=== PATIENT | male | born 1970 | race Caucasian/White ===

== ENCOUNTER 2016-11-15 07:53 | Emergency (ER) | payer BC ==
[~2016-11-15] VITALS: Ht 170.1 cm; Wt 72.6 kg
[~2016-11-15 07:53] MED LIST: ASPIRIN81 M1 PO; AUGMENTIN 875875 MG PO; CIMZIA200 MG/ML SC; CYCLOBENZAPRINE10 MG PO; DICYCLOMINE HCL20 MG PO; FAMILY PHARMAC0.4 MG PO; FLAGYL250 MG PO; HYDROCODONE BIT1 T11 PO; LOTRISONE 0.05%1 CRE TP; MIRALAX POWDER255 GM PO; MOTRIN800 MG PO; MULTIPLE VITAMI1 CAP PO; NASONEX0.05 MG/AC NS; NORCO 5-325 TA1 EACH PO; PENTASA500 MG PO; PHENERGAN W/ DE30 ML PO; PREDNICOT10 MG PO; PREDNISONE20 MG PO; PREDNISONE25 MG PO; PRILOSEC40 MG PO; PROAIR HFA0.09 MG/AC INH; ZOFRAN ODT4 MG PO; ZOFRAN ODT4 MG SL
[2016-11-15 08:33] LABS: BASO % 0.8 % (0.0-1.0); EOS # 0.1 10*3/uL (0.0-0.4); EOS % 1.9 % (1.0-4.0); HEMATOCRIT 44.4 % (42.0-52.0); HEMOGLOBIN 14.9 g/dl (14.0-18.0); LYMPH # 1.5 10*3/uL (1.3-4.4); LYMPH % 29.9 % (27.0-41.0); MEAN CELL VOLUME 95.3 fl (80.0-94.0); MEAN CORPUSCULAR HGB CONC 33.6 g/dl (33.0-37.0); MEAN PLATELET VOLUME 8.9 fl (9.6-12.3); MONO # 0.4 10*3/uL (0.1-1.0); MONO % 8.3 % (3.0-9.0); NEUT % 58.9 % (47.0-73.0); PLATELET COUNT AUTOMATED 289 10*3/uL (130-400); RED BLOOD COUNT 4.66 10*6/uL (4.50-5.90); RED CELL DISTRI WIDTH 11.8 % (0-14.5); WHITE BLOOD COUNT 5.2 10*3/uL (4.8-10.8)
[2016-11-15 08:51] LABS: ALBUMIN 3.9 gm/dl (3.1-4.5); ALKALINE PHOSPHATASE 71 U/L (45-117); BILIRUBIN, TOTAL 0.3 mg/dl (0.2-1.0); BUN 9 mg/dl (7-24); CARBON DIOXIDE 29 mmol/L (21-32); CHLORIDE 106 mmol/L (98-107); EST GLOM FILT AFRICAN AMERICAN > 60 ml/min; GLUCOSE 110 mg/dL (65-99); MAGNESIUM 2.2 mg/dL (1.5-2.1); POTASSIUM 3.8 mmol/L (3.5-5.1); SGOT/AST 12 IU/L (3-35); SGPT/ALT 22 U/L (12-78); SODIUM 144 mmol/L (136-145); TOTAL PROTEIN 7.4 gm/dL (6.4-8.2); TROPONIN I < 0.015 ng/ml (<0.5)
[2016-11-15] MEDS ORDERED: MECLIZINE HCL25 M2 PO (11:07)
[2017-01-10] MEDS ORDERED: PERCOCET 325 MG1 TA2 PO (01:10)
== END 2016-11-15 11:09 | disposition home or self-care (01) ==
LOC: ED 07:53
PROVIDERS: Emergency Medicine
DX: R42 Dizziness and giddiness (principal); R51 Headache; R11.0 Nausea; F17.200 Nicotine dependence, unspecified, uncomplicated; Z88.8 Allergy status to other drugs, medicaments and biological substances; Z79.82 Long term (current) use of aspirin; Z79.899 Other long term (current) drug therapy

== ENCOUNTER 2017-01-20 00:15 | Inpatient (IN) | payer BC ==
[2017-01-20] VITALS (8 sets, daily range): BP systolic 104–128; BP diastolic 59–78
[~2017-01-20] VITALS: Ht 170.2 cm; Wt 70.3 kg
--- NOTE | ~2017-01-20 | CON ---
[place], [place] REPORT OF CONSULTATION NAME: [facility]A MYRICK [facility] [id number] UNIT #: [id number] ROOM: 407 DOCTOR: DA CELESTE MD BIRTHDATE: [birth year] DOS: 01/20/2017 CARDIOLOGY CONSULTATION REASON FOR CONSULTATION: Chest pain. CLINICAL HISTORY: The patient is a 46-year-old gentleman with history of Crohn's disease and tobacco smoking, who came to the Emergency Room with left-sided chest pain. He described this pain as aching sensation in the midsternal area at rest, mild and it radiates to the both sides of the chest wall. No associated nausea, shortness of breath or diaphoresis. In the Emergency Room, he received aspirin that helps his pain partially, but he denies any palpitations, shortness of breath, or dizziness. No edema or orthopnea. No PND. No fever or chills. No nausea, vomiting, or diarrhea. No hematemesis. No hematuria. No cough. No tingling, numbness or weakness. He had a stress test probably 4 years ago and he does smoke and try cut back his cigarettes. REVIEW OF SYSTEMS: Review of the 8 systems negative except as mentioned above. PAST MEDICAL HISTORY: 1. Crohn's disease. 2. History of partial resection of the colon and terminal ileum. 3. GERD. PAST SURGICAL HISTORY: History of partial colon resection and terminal ileum resection about 20 years ago. SOCIAL HISTORY: The patient does smoke half a pack to 1 pack a day, but does not use alcohol or illicit drug abuse. FAMILY HISTORY: Father has ____ diverticulosis. Mother has colitis and protein S deficiency. ALLERGIES: THE PATIENT IS ALLERGIC TO PHENOBARBITAL. HOME MEDICATIONS: Reviewed. PHYSICAL EXAMINATION: VITAL SIGNS: Blood pressure 104/74, pulse 63, respiratory rate is 14. GENERAL: Alert, comfortable, in no acute distress. HEENT: Pupils are round and equal. No jaundice. Tongue was moist and pharynx was clear. NECK: Supple. No distended neck veins. No carotid bruit. Thyroid is not palpable. CHEST: Chest wall is symmetrical, nontender. LUNGS: Clear to auscultation bilaterally. HEART: Regular rhythm, no S3, no palpable thrills. ABDOMEN: Benign, nontender. Bowel sounds normal. EXTREMITIES: Showed no edema. Distal pulses are palpable. SKIN: Warm and dry. No cyanosis, no clubbing. [place], [place] REPORT OF CONSULTATION NAME: NEELA MYRICK UNIT #: [id number] ROOM: 407 DOCTOR: BOOKER LAM,DA BIRTHDATE: [birth year] NEUROLOGIC: The patient was alert and oriented with no gross focal neurologic deficit. RECTAL: Deferred. GENITOURINARY: Deferred. REVIEW OF THE DIAGNOSTIC TESTS: EKG showed sinus rhythm. CBC, chemistry and cardiac enzymes were reviewed, which are unremarkable. IMPRESSION: 1. Chest pain, atypical. 2. Tobacco smoking. 3. History of Crohn's disease. RECOMMENDATIONS: He was scheduled for a stress test today, now I changed to Lexiscan since he just received morphine this morning. He denies any further chest pains. EKG and cardiac enzymes are unremarkable. If the stress test is unremarkable, he can be discharged to home from the cardiac standpoint. The patient is counseled to quit smoking. DA CELESTE MD CM:CONSTR:REPORT OF CONSULTATION 1121 01/20/172129 interface
--- NOTE | ~2017-01-20 | ST ---
[place], [place] EXERCISE STRESS TEST REPORT NAME: [id number] UNIT #: [id number] ROOM: 407 DOCTOR: BOOKER LAM,DA BIRTHDATE: [birth year] DOS: 01/20/2017 LEXISCAN STRESS TEST REASON FOR TEST: Chest pain. REFERRING PHYSICIAN: Dr. Rivas. PHYSICAL EXAMINATION NECK: Supple. LUNGS: Clear to auscultation. HEART: Regular rhythm. PROTOCOL: Lexiscan protocol. Maximum heart rate 115 and peak blood pressure 104/74. SYMPTOMS: The patient is chest pain free. EKG showed no ischemia, no arrhythmias. CONCLUSION: Clinically, the patient is chest pain free and there is no ischemia on the EKG. The patient received a total of 0.4 mg Lexiscan. DA CELESTE MD CM:STRESS:EXERCISE STRESS TEST REPORT 1135 [id number] DA CELESTE MD
[~2017-01-20 00:15] MED LIST changes: +MECLIZINE HCL25 M2 PO; +PERCOCET 325 MG1 TA2 PO
[2017-01-20 00:41] LABS: BASO # 0.1 10*3/uL (0.0-0.1); BASO % 0.9 % (0.0-1.0); EOS # 0.3 10*3/uL (0.0-0.4); EOS % 4.1 % (1.0-4.0); HEMATOCRIT 43.1 % (42.0-52.0); HEMOGLOBIN 14.7 g/dl (14.0-18.0); LYMPH # 2.3 10*3/uL (1.3-4.4); LYMPH % 30.9 % (27.0-41.0); MEAN CELL VOLUME 93.3 fl (80.0-94.0); MEAN CORPUSCULAR HGB 31.8 pg (27.0-31.0); MEAN CORPUSCULAR HGB CONC 34.1 g/dl (33.0-37.0); MEAN PLATELET VOLUME 8.9 fl (9.6-12.3); MONO # 0.8 10*3/uL (0.1-1.0); MONO % 10.6 % (3.0-9.0); NEUT % 53.4 % (47.0-73.0); PLATELET COUNT AUTOMATED 299 10*3/uL (130-400); RED BLOOD COUNT 4.62 10*6/uL (4.50-5.90); RED CELL DISTRI WIDTH 12.2 % (0-14.5); WHITE BLOOD COUNT 7.5 10*3/uL (4.8-10.8)
[2017-01-20 00:59] LABS: BUN 8 mg/dl (7-24); CARBON DIOXIDE 27 mmol/L (21-32); CHLORIDE 103 mmol/L (98-107); EST GLOM FILT AFRICAN AMERICAN > 60 ml/min; GLUCOSE 122 mg/dL (65-99); POTASSIUM 3.5 mmol/L (3.5-5.1); SODIUM 142 mmol/L (136-145)
[2017-01-20 01:02] LABS: TROPONIN I < 0.015 ng/ml (<0.045)
[2017-01-20] MEDS ORDERED: PERCOCET 325 MG1 TA2 PO (01:16)
[2017-01-20] MEDS ORDERED: BENTYL10 MG PO ×2 (01:52→06:53)
== END 2017-01-20 19:19 | disposition home or self-care (01) | DRG 313 ==
LOC: ED 00:15 → EDHOLD 01:44 → 4E 02:09
PROVIDERS: Emergency Medicine Emergency Medical Services
PROC: 4A02XM4 Measurement of Cardiac Total Activity, External Approach (ICD-10-PCS; principal; 2017-01-20)
DX: R07.89 Other chest pain (principal); K50.90 Crohn's disease, unspecified, without complications; K21.9 Gastro-esophageal reflux disease without esophagitis; F17.210 Nicotine dependence, cigarettes, uncomplicated; F41.9 Anxiety disorder, unspecified; R73.9 Hyperglycemia, unspecified; K44.9 Diaphragmatic hernia without obstruction or gangrene; Z71.6 Tobacco abuse counseling; Z83.79 Family history of other diseases of the digestive system; Z88.8 Allergy status to other drugs, medicaments and biological substances; Z79.82 Long term (current) use of aspirin; Z79.1 Long term (current) use of non-steroidal anti-inflammatories (NSAID); Z79.899 Other long term (current) drug therapy

== ENCOUNTER → 2017-01-24 | Outpatient (CLI) | payer BC ==
[~2017-01-24] MED LIST changes: +BENTYL10 MG PO
== END | disposition home or self-care (01) ==
LOC: LAB 13:11
PROVIDERS: Internal Medicine Gastroenterology
DX: K50.918 Crohn's disease, unspecified, with other complication (principal)

== ENCOUNTER 2017-02-02 19:49 | Emergency (ER) | payer BC ==
[~2017-02-02] VITALS: Ht 170.1 cm; Wt 66.2 kg
[2017-02-02 20:35] LABS: BASO # 0.1 10*3/uL (0.0-0.1); BASO % 1.1 % (0.0-1.0); EOS # 0.3 10*3/uL (0.0-0.4); EOS % 3.5 % (1.0-4.0); HEMATOCRIT 45.3 % (42.0-52.0); HEMOGLOBIN 15.3 g/dl (14.0-18.0); LYMPH # 2.9 10*3/uL (1.3-4.4); LYMPH % 39.1 % (27.0-41.0); MEAN CELL VOLUME 95.8 fl (80.0-94.0); MEAN CORPUSCULAR HGB 32.3 pg (27.0-31.0); MEAN CORPUSCULAR HGB CONC 33.8 g/dl (33.0-37.0); MEAN PLATELET VOLUME 8.7 fl (9.6-12.3); MONO # 0.8 10*3/uL (0.1-1.0); MONO % 10.9 % (3.0-9.0); NEUT # 3.4 10*3/uL (2.3-7.9); NEUT % 45.3 % (47.0-73.0); PLATELET COUNT AUTOMATED 253 10*3/uL (130-400); RED BLOOD COUNT 4.73 10*6/uL (4.50-5.90); RED CELL DISTRI WIDTH 12.3 % (0-14.5); WHITE BLOOD COUNT 7.4 10*3/uL (4.8-10.8)
[2017-02-02 20:38] LABS: BILIRUBIN NEGATIVE (NEGATIVE); BLOOD NEGATIVE (NEGATIVE); CLARITY CLEAR (CLEAR); COLOR YELLOW (YELLOW); GLUCOSE NEGATIVE (NEGATIVE); KETONE NEGATIVE (NEGATIVE); LEUKO ESTERASE NEGATIVE (NEGATIVE); NITRITE NEGATIVE (NEGATIVE); PH 6.5 (5.0-9.0); PROTEIN NEGATIVE (NEGATIVE); SPECIFIC GRAVITY <= 1.005 (1.005-1.030); UROBILINOGEN 0.2 E.U./dl (0.2-1.0)
[2017-02-02 20:45] LABS: URINE REFLEX COMMENT NO (NO); WBC 0-2 wbc/hpf (0-5)
[2017-02-02 20:50] LABS: ALBUMIN 4.2 gm/dl (3.1-4.5); ALKALINE PHOSPHATASE 69 U/L (45-117); BILIRUBIN, TOTAL 0.3 mg/dl (0.2-1.0); BUN 9 mg/dl (7-24); CARBON DIOXIDE 30 mmol/L (21-32); CHLORIDE 105 mmol/L (98-107); EST GLOM FILT AFRICAN AMERICAN > 60 ml/min; GLUCOSE 84 mg/dL (65-99); POTASSIUM 4.3 mmol/L (3.5-5.1); SGOT/AST 13 IU/L (3-35); SGPT/ALT 25 U/L (12-78); SODIUM 141 mmol/L (136-145); TOTAL PROTEIN 7.8 gm/dL (6.4-8.2)
== END 2017-02-02 21:57 | disposition home or self-care (01) ==
LOC: ED 19:49
PROVIDERS: Physician Assistant
DX: G89.29 Other chronic pain (principal); R10.11 Right upper quadrant pain; F17.200 Nicotine dependence, unspecified, uncomplicated; Z98.890 Other specified postprocedural states; Z79.82 Long term (current) use of aspirin; Z88.8 Allergy status to other drugs, medicaments and biological substances

== ENCOUNTER 2017-06-11 16:04 | Inpatient (IN) | payer BC ==
[~2017-06-11] VITALS: Ht 170.1 cm; Wt 65.4 kg
--- NOTE | ~2017-06-11 | CON ---
[place], [place] REPORT OF CONSULTATION NAME: [facility]ICK [facility] [id number] UNIT #: [id number] ROOM: 526 DOCTOR: DA CELESTE MD BIRTHDATE: [birth year] DOS: 06/13/2017 REASON FOR CONSULTATION: Syncope and bradycardia. CLINICAL HISTORY: The patient is a 46-year-old gentleman with history of Crohn's disease, history of recurrent syncopal attacks in the past, was brought to the Emergency Room by his parent because of "unresponsiveness." Apparently, the patient was at work and he was picked up by his family members and he was found to be unresponsive and they picked him up per his family and he was brought to the Emergency Room. He was found to have "some weak pulse" per family. Glucose was 116. He was put on a nonrebreather facemask and given some Narcan and Zofran as well as IV fluids and during that time, the patient became more alert and responded to the nursing staff. Apparently, he has history of "few episodes of passing out spells" about 2 years ago. He fell and hit his head. He was noted to have some "migraine headaches", some nausea. Apparently, there was no chest pains or palpitations. No fever and chills. He had history of Crohn's disease with history of colon surgery a few years ago. REVIEW OF SYSTEMS: Review of the 8 systems negative except as mentioned above. The only review of systems is positive for headache and nausea and some abdominal pain. PAST MEDICAL HISTORY: 1. History of Crohn's disease. 2. Tobacco use. 3. History of "passing out spells." 4. Acid reflux. 5. Hiatal hernia. PAST SURGICAL HISTORY: History of colon surgery. SOCIAL HISTORY: The patient does not use any illicit drugs, does smoke cigarettes, does not use alcohol. FAMILY HISTORY: Father is healthy, has diverticulosis; mother has some ischemic colitis and a protein S deficiency. ALLERGIES: THE PATIENT IS ALLERGIC TO PHENOBARBITAL. OCCUPATION: The patient is a commercial installer. HOME MEDICATIONS: Aspirin, Prilosec and Cimzia. PHYSICAL EXAMINATION: VITAL SIGNS: Blood pressure 90/52, pulse 56, respiratory rate 16. GENERAL: Alert, comfortable, in no acute distress. HEENT: Pupils are round and equal. No jaundice. Tongue was moist and pharynx was clear. NECK: Supple, no distended neck veins, no carotid bruit. CHEST: Symmetrical, nontender. [place], [place] REPORT OF CONSULTATION NAME: NEELA MYRICK [facility] UNIT #: [id number] ROOM: 526 DOCTOR: DA CELESTE MD BIRTHDATE: [birth year] LUNGS: Clear to auscultation bilaterally. HEART: Regular rhythm, no S3, no palpable thrills. ABDOMEN: Benign, nontender. Bowel sounds normal. EXTREMITIES: Showed no edema. Distal pulses are palpable. SKIN: Warm and dry. No cyanosis, no clubbing. NEUROLOGIC: The patient is alert, oriented. No focal neurologic deficit. RECTAL: Deferred. GENITOURINARY: Deferred. REVIEW OF THE DIAGNOSTIC TESTS: EKG, rhythm strips reviewed. The patient had some few sinus bradycardia. EKG shows sinus rhythm with normal QT interval, no ischemic changes. IMPRESSION: 1. Syncope, possibly due to hypotension. 2. Sinus bradycardia. 3. History of migraine headaches. 4. History of Crohn's disease with history of colon resection. 5. Tobacco use. 6. Some nausea and abdominal discomfort. RECOMMENDATIONS: Continue IV fluids for his low blood pressure. He has some borderline sinus bradycardia, continue to monitor heart rate. His serum T4 levels are normal, although TSH is slightly lower. Cardiac berry, continue to monitor blood pressure and heart rate. I would recommend outpatient cardiac event monitor for 2-4 weeks to monitor for any significant jerman or tachyarrhythmias. The patient and family will prefer to be transferred to [place] or [facility] for further testing. He had recent cardiac testing in December when he was admitted for chest pain. He will need a tilt-table test and possible EP referral as an outpatient. The patient and his family were advised that he can follow up with a doctor in [place] or if he wants to follow up with [facility], we will see him in our clinic after discharge. Risk factor modification discussed. [place], [place] REPORT OF CONSULTATION NAME: NEELA MYRICK UNIT #: [id number] ROOM: 526 DOCTOR: DA CELESTE MD BIRTHDATE: [birth year] DA CELESTE MD CM:CONSTR:REPORT OF CONSULTATION 1319 06/14/17 0220 interface
[~2017-06-11 16:04] MED LIST changes: +PRILOSEC20 M1 PO
[2017-06-11 16:29] VITALS: BP 118/70
[2017-06-11 16:57] LABS: INTERNATIONAL NORM RATIO 1.1 (2.0-3.5); PROTHROMBIN TIME 11.4 SECONDS (9.0-12.4)
[2017-06-11 16:59] LABS: BASO # 0.1 10*3/uL (0.0-0.1); BASO % 0.5 % (0.0-1.0); EOS % 0.3 % (1.0-4.0); HEMATOCRIT 45.5 % (42.0-52.0); HEMOGLOBIN 15.1 g/dl (14.0-18.0); IG # 0.1 10*3/uL (0.0-0.1); LYMPH % 9.2 % (27.0-41.0); MEAN CELL VOLUME 96.2 fl (80.0-94.0); MEAN CORPUSCULAR HGB 31.9 pg (27.0-31.0); MEAN CORPUSCULAR HGB CONC 33.2 g/dl (33.0-37.0); MEAN PLATELET VOLUME 9.2 fl (9.6-12.3); MONO # 0.4 10*3/uL (0.1-1.0); MONO % 3.6 % (3.0-9.0); NEUT # 9.1 10*3/uL (2.3-7.9); NEUT % 85.9 % (47.0-73.0); PLATELET COUNT AUTOMATED 230 10*3/uL (130-400); RED BLOOD COUNT 4.73 10*6/uL (4.50-5.90); RED CELL DISTRI WIDTH 11.9 % (0-14.5); WHITE BLOOD COUNT 10.6 10*3/uL (4.8-10.8)
[2017-06-11 17:00] LABS: ALBUMIN 4.2 gm/dl (3.1-4.5); ALKALINE PHOSPHATASE 73 U/L (45-117); BILIRUBIN, TOTAL 0.6 mg/dl (0.2-1.0); BUN 7 mg/dl (7-24); CARBON DIOXIDE 26 mmol/L (21-32); CHLORIDE 105 mmol/L (98-107); EST GLOM FILT AFRICAN AMERICAN > 60 ml/min; GLUCOSE 114 mg/dL (65-99); POTASSIUM 3.5 mmol/L (3.5-5.1); SGOT/AST 22 IU/L (3-35); SGPT/ALT 24 U/L (12-78); SODIUM 140 mmol/L (136-145); TOTAL PROTEIN 7.4 gm/dL (6.4-8.2)
[2017-06-11 17:02] LABS: BILIRUBIN 1+ (NEGATIVE); BLOOD 3+ (NEGATIVE); CLARITY SL CLOUDY (CLEAR); COLOR YELLOW (YELLOW); GLUCOSE NEGATIVE (NEGATIVE); KETONE 2+ (NEGATIVE); LEUKO ESTERASE NEGATIVE (NEGATIVE); NITRITE NEGATIVE (NEGATIVE); PROTEIN 1+ (NEGATIVE); SPECIFIC GRAVITY >= 1.030 (1.005-1.030); UROBILINOGEN 0.2 E.U./dl (0.2-1.0)
[2017-06-11 17:05] LABS: ABG BASE EXCESS -0.9 mmol/L (-2.0-2.0); ABG CO2 CONTENT 25.7 mmol/L (23-27); ABG HCO3 24.4 mmol/l (22-26); ARTERIAL BLOOD GAS PH 7.359 (7.35-7.45); ARTERIAL BLOOD GAS PO2 87.4 mmHg (80-90)
[2017-06-11 17:10] LABS: URINE AMPHETAMINES < 1000 (1000ng/ml); URINE BARBITURATES < 200 (200ng/ml); URINE COCAINE < 300 (300ng/ml)
[2017-06-11 17:26] LABS: BACTERIA 2+; RBC TNTC rbc/hpf (0-2); URINE REFLEX COMMENT YES (NO)
[2017-06-11 17:43] VITALS: BP 124/70
[2017-06-11 17:46] VITALS: BP 107/68
[2017-06-11 18:18] LABS: CSF RBC < 1000 /uL
[2017-06-11 18:24] VITALS: BP 110/74
[2017-06-11 18:25] LABS: CSF GLUCOSE 64 mg/dL (40-70); CSF TOTAL PROTEIN 27.1 mg/dL (15-45)
[2017-06-11] MEDS ORDERED: Zofran4 MG PO (18:38)
[2017-06-11] MEDS ORDERED: IMITREX100 MG PO (18:38)
[2017-06-11 19:22] LABS: CSF LYMPHOCYTES 89 % (40-80); CSF MONOCYTES 11 % (15-45)
[2017-06-11 19:25] LABS: CLARITY CLEAR; COLOR COLORLESS; TUBE# 3
[2017-06-11 19:56] VITALS: BP 104/64
[2017-06-11] MEDS ORDERED: CIMZIA400 MG SC (20:33)
[2017-06-11 20:48] VITALS: BP 123/75
[2017-06-12] VITALS: BP 117/73
[2017-06-12 06:40] LABS: HEMOGLOBIN A1c 5.8 % (4.8-5.6)
[2017-06-12 06:50] LABS: BUN 8 mg/dl (7-24); CARBON DIOXIDE 29 mmol/L (21-32); CHLORIDE 106 mmol/L (98-107); CHOLESTEROL 137 mg/dL (<200); EST GLOM FILT AFRICAN AMERICAN > 60 ml/min; FREE T4 1.05 ng/dl (0.76-1.46); GLUCOSE 86 mg/dL (65-99); HDL CHOLESTEROL 42 mg/dl (40-60); LDL CHOLESTEROL 67 mg/dL (9-159); PHOSPHOROUS 3.1 mg/dL (2.5-4.9); POTASSIUM 3.7 mmol/L (3.5-5.1); SODIUM 141 mmol/L (136-145); TRIGLYCERIDES 142 mg/dl (<150); VLDL CHOLESTEROL 28 mg/dL (6-40)
[2017-06-12 06:55] LABS: PROTHROMBIN TIME 11.1 SECONDS (9.0-12.4)
[2017-06-12 06:56] LABS: BASO % 0.5 % (0.0-1.0); EOS # 0.1 10*3/uL (0.0-0.4); EOS % 1.2 % (1.0-4.0); HEMATOCRIT 42.3 % (42.0-52.0); HEMOGLOBIN 14.4 g/dl (14.0-18.0); LYMPH # 2.2 10*3/uL (1.3-4.4); LYMPH % 26.6 % (27.0-41.0); MEAN CELL VOLUME 95.7 fl (80.0-94.0); MEAN CORPUSCULAR HGB 32.6 pg (27.0-31.0); MEAN PLATELET VOLUME 9.5 fl (9.6-12.3); MONO # 0.7 10*3/uL (0.1-1.0); MONO % 8.9 % (3.0-9.0); NEUT # 5.1 10*3/uL (2.3-7.9); NEUT % 62.4 % (47.0-73.0); PLATELET COUNT AUTOMATED 230 10*3/uL (130-400); RED BLOOD COUNT 4.42 10*6/uL (4.50-5.90); RED CELL DISTRI WIDTH 12.1 % (0-14.5); WHITE BLOOD COUNT 8.2 10*3/uL (4.8-10.8)
[2017-06-12 06:57] LABS: THYROID STIM HORMONE (HS) 0.252 uIU/ml (0.358-4.75)
[2017-06-12 08:00] VITALS: BP 97/61
[2017-06-12 12:00] VITALS: BP 107/68
[2017-06-12 16:00] VITALS: BP 102/66
[2017-06-12 20:00] VITALS: BP 86/54
[2017-06-13] VITALS: BP 100/58
[2017-06-13 07:20] LABS: BASO # 0.1 10*3/uL (0.0-0.1); BASO % 0.9 % (0.0-1.0); EOS # 0.2 10*3/uL (0.0-0.4); EOS % 4.1 % (1.0-4.0); HEMATOCRIT 42.3 % (42.0-52.0); LYMPH # 1.8 10*3/uL (1.3-4.4); LYMPH % 30.8 % (27.0-41.0); MEAN CORPUSCULAR HGB 32.1 pg (27.0-31.0); MEAN CORPUSCULAR HGB CONC 33.1 g/dl (33.0-37.0); MEAN PLATELET VOLUME 9.7 fl (9.6-12.3); MONO # 0.5 10*3/uL (0.1-1.0); NEUT # 3.2 10*3/uL (2.3-7.9); PLATELET COUNT AUTOMATED 223 10*3/uL (130-400); RED BLOOD COUNT 4.36 10*6/uL (4.50-5.90); RED CELL DISTRI WIDTH 12.2 % (0-14.5); WHITE BLOOD COUNT 5.8 10*3/uL (4.8-10.8)
[2017-06-13 07:29] LABS: BUN 10 mg/dl (7-24); CHLORIDE 108 mmol/L (98-107); GLUCOSE 96 mg/dL (65-99); SODIUM 141 mmol/L (136-145)
[2017-06-13 07:30] LABS: CARBON DIOXIDE 28 mmol/L (21-32); EST GLOM FILT AFRICAN AMERICAN > 60 ml/min
[2017-06-13 08:00] VITALS: BP 90/52
[2017-06-13 12:00] VITALS: BP 101/76
[2017-06-13] MEDS ORDERED: NICODERM T (14:32)
[2017-06-13 16:00] VITALS: BP 113/74
[2017-06-14 14:19] LABS: VITAMIN D, 25-HYDROXY 32.2 ng/mL (30-100)
[2017-06-14 14:20] LABS: FOLIC ACID 12.6 ng/mL (>5.38)
== END 2017-06-13 16:53 | disposition short-term general hospital (02) | DRG 103 ==
LOC: ED 16:04 → EDHOLD 19:15 → 5E 19:15
PROVIDERS: Emergency Medicine; Internal Medicine
PROC: 009U3ZX Drainage of Spinal Canal, Percutaneous Approach, Diagnostic (ICD-10-PCS; principal; 2017-06-11)
DX: G43.911 Migraine, unspecified, intractable, with status migrainosus (principal); K50.90 Crohn's disease, unspecified, without complications; R00.1 Bradycardia, unspecified; R55 Syncope and collapse; R31.9 Hematuria, unspecified; K21.9 Gastro-esophageal reflux disease without esophagitis; F17.210 Nicotine dependence, cigarettes, uncomplicated; R73.03 Prediabetes; K44.9 Diaphragmatic hernia without obstruction or gangrene; Z90.49 Acquired absence of other specified parts of digestive tract; Z71.6 Tobacco abuse counseling; Z88.8 Allergy status to other drugs, medicaments and biological substances; Z83.79 Family history of other diseases of the digestive system; Z79.82 Long term (current) use of aspirin; Z79.899 Other long term (current) drug therapy

== ENCOUNTER 2017-08-12 14:08 | Emergency (ER) | payer BC ==
[~2017-08-12] VITALS: Ht 170.1 cm; Wt 69.9 kg
[~2017-08-12 14:08] MED LIST changes: +CIMZIA400 MG SC; +IMITREX100 MG PO; +NICODERM T; +Zofran4 MG PO
[2017-08-12 14:39] LABS: BASO # 0.1 10*3/uL (0.0-0.1); BASO % 0.8 % (0.0-1.0); EOS # 0.2 10*3/uL (0.0-0.4); EOS % 2.6 % (1.0-4.0); HEMATOCRIT 49.7 % (42.0-52.0); HEMOGLOBIN 16.6 g/dl (14.0-18.0); LYMPH % 27.1 % (27.0-41.0); MEAN CELL VOLUME 96.1 fl (80.0-94.0); MEAN CORPUSCULAR HGB 32.1 pg (27.0-31.0); MEAN CORPUSCULAR HGB CONC 33.4 g/dl (33.0-37.0); MEAN PLATELET VOLUME 8.9 fl (9.6-12.3); MONO # 0.6 10*3/uL (0.1-1.0); MONO % 7.7 % (3.0-9.0); NEUT # 4.5 10*3/uL (2.3-7.9); NEUT % 61.5 % (47.0-73.0); PLATELET COUNT AUTOMATED 284 10*3/uL (130-400); RED BLOOD COUNT 5.17 10*6/uL (4.50-5.90); RED CELL DISTRI WIDTH 12.1 % (0-14.5); WHITE BLOOD COUNT 7.4 10*3/uL (4.8-10.8)
[2017-08-12 14:57] LABS: ALKALINE PHOSPHATASE 85 U/L (45-117); BUN 10 mg/dl (7-24); CHLORIDE 104 mmol/L (98-107); LIPASE 218 U/L (73-393); SGOT/AST 12 IU/L (3-35); SGPT/ALT 23 U/L (12-78); SODIUM 139 mmol/L (136-145)
[2017-08-12] MEDS ORDERED: ZOFRAN4 MG PO (15:45)
== END 2017-08-12 15:52 | disposition home or self-care (01) ==
LOC: ED 14:08
PROVIDERS: Nurse Practitioner Family
DX: R10.31 Right lower quadrant pain (principal); R10.32 Left lower quadrant pain; K21.9 Gastro-esophageal reflux disease without esophagitis; E11.9 Type 2 diabetes mellitus without complications; G43.909 Migraine, unspecified, not intractable, without status migrainosus; F17.200 Nicotine dependence, unspecified, uncomplicated; Z88.8 Allergy status to other drugs, medicaments and biological substances; Z79.82 Long term (current) use of aspirin; Z79.899 Other long term (current) drug therapy

== ENCOUNTER 2017-10-13 09:57 | Emergency (ER) | payer BC ==
[~2017-10-13] VITALS: Ht 170.1 cm; Wt 70.3 kg
[~2017-10-13 09:57] MED LIST changes: +ZOFRAN4 MG PO
[2017-10-13 10:33] LABS: BASO # 0.1 10*3/uL (0.0-0.1); BASO % 0.9 % (0.0-1.0); EOS # 0.2 10*3/uL (0.0-0.4); EOS % 3.6 % (1.0-4.0); HEMATOCRIT 44.4 % (42.0-52.0); LYMPH # 1.5 10*3/uL (1.3-4.4); LYMPH % 27.7 % (27.0-41.0); MEAN CELL VOLUME 93.9 fl (80.0-94.0); MEAN CORPUSCULAR HGB 31.7 pg (27.0-31.0); MEAN CORPUSCULAR HGB CONC 33.8 g/dl (33.0-37.0); MEAN PLATELET VOLUME 8.7 fl (9.6-12.3); MONO # 0.5 10*3/uL (0.1-1.0); MONO % 9.5 % (3.0-9.0); NEUT # 3.2 10*3/uL (2.3-7.9); NEUT % 57.9 % (47.0-73.0); PLATELET COUNT AUTOMATED 269 10*3/uL (130-400); RED BLOOD COUNT 4.73 10*6/uL (4.50-5.90); RED CELL DISTRI WIDTH 11.8 % (0-14.5); WHITE BLOOD COUNT 5.5 10*3/uL (4.8-10.8)
[2017-10-13 10:47] LABS: ALBUMIN 3.8 gm/dl (3.1-4.5); ALKALINE PHOSPHATASE 79 U/L (45-117); BUN 9 mg/dl (7-24); CHLORIDE 105 mmol/L (98-107); CREATININE 1.07 mg/dL (0.70-1.30); LIPASE 157 U/L (73-393); POTASSIUM 4.2 mmol/L (3.5-5.1); SGOT/AST 20 IU/L (3-35); SGPT/ALT 28 U/L (12-78); SODIUM 138 mmol/L (136-145); TOTAL PROTEIN 7.6 gm/dL (6.4-8.2)
[2017-10-13] MEDS ORDERED: ZOFRAN4 MG PO (12:28)
[2017-10-13] MEDS ORDERED: PREDNISONE10 MG PO (12:28)
== END 2017-10-13 12:47 | disposition home or self-care (01) ==
LOC: ED 09:57
PROVIDERS: Nurse Practitioner Family
DX: R10.30 Lower abdominal pain, unspecified (principal); R11.0 Nausea; F17.200 Nicotine dependence, unspecified, uncomplicated; Z88.8 Allergy status to other drugs, medicaments and biological substances

== ENCOUNTER 2017-10-24 21:42 | Emergency (ER) | payer BC ==
[~2017-10-24] VITALS: Ht 170.1 cm; Wt 77.1 kg
[~2017-10-24 21:42] MED LIST changes: +PREDNISONE10 MG PO
[2017-10-24] MEDS ORDERED: SEPTDS PO (22:07)
== END 2017-10-24 22:12 | disposition home or self-care (01) ==
LOC: ED 21:42
DX: K64.4 Residual hemorrhoidal skin tags (principal); F17.200 Nicotine dependence, unspecified, uncomplicated; Z88.8 Allergy status to other drugs, medicaments and biological substances; Z79.899 Other long term (current) drug therapy

== ENCOUNTER 2018-01-02 22:23 | Emergency (ER) | payer BC ==
[~2018-01-02] VITALS: Ht 170.1 cm; Wt 72.6 kg
[~2018-01-02 22:23] MED LIST changes: +SEPTDS PO
[2018-01-02] MEDS ORDERED: TOPIRAMATE25 M3 PO (22:29)
[2018-01-02 23:26] LABS: BASO % 0.4 % (0.0-1.0); EOS # 0.1 10*3/uL (0.0-0.4); EOS % 0.9 % (1.0-4.0); HEMATOCRIT 42.7 % (42.0-52.0); HEMOGLOBIN 14.5 g/dl (14.0-18.0); LYMPH # 2.2 10*3/uL (1.3-4.4); LYMPH % 32.4 % (27.0-41.0); MEAN CELL VOLUME 93.2 fl (80.0-94.0); MEAN CORPUSCULAR HGB 31.7 pg (27.0-31.0); MEAN PLATELET VOLUME 9.2 fl (9.6-12.3); MONO # 0.8 10*3/uL (0.1-1.0); NEUT # 3.6 10*3/uL (2.3-7.9); NEUT % 54.2 % (47.0-73.0); PLATELET COUNT AUTOMATED 304 10*3/uL (130-400); RED BLOOD COUNT 4.58 10*6/uL (4.50-5.90); RED CELL DISTRI WIDTH 12.1 % (0-14.5); WHITE BLOOD COUNT 6.7 10*3/uL (4.8-10.8)
[2018-01-02 23:27] LABS: ALBUMIN 3.6 gm/dl (3.1-4.5); ALKALINE PHOSPHATASE 95 U/L (45-117); BUN 7 mg/dl (7-24); CHLORIDE 105 mmol/L (98-107); CREATININE 1.07 mg/dL (0.70-1.30); SGOT/AST 17 IU/L (3-35); SGPT/ALT 26 U/L (12-78); SODIUM 141 mmol/L (136-145); TOTAL PROTEIN 7.6 gm/dL (6.4-8.2)
[2018-01-02] MEDS ORDERED: K-TAB20 MEQ PO (23:40)
== END 2018-01-03 00:15 | disposition home or self-care (01) ==
LOC: ED 22:23
PROVIDERS: Nurse Practitioner Family
DX: E87.6 Hypokalemia (principal); F17.200 Nicotine dependence, unspecified, uncomplicated; Z88.8 Allergy status to other drugs, medicaments and biological substances

== ENCOUNTER 2018-01-19 16:32 | Emergency (ER) | payer BC ==
[~2018-01-19] VITALS: Ht 170.1 cm; Wt 72.6 kg
[~2018-01-19 16:32] MED LIST changes: +K-TAB20 MEQ PO; +TOPIRAMATE25 M3 PO
[2018-01-19 17:13] LABS: BASO % 0.3 % (0.0-1.0); EOS % 0.2 % (1.0-4.0); HEMATOCRIT 42.9 % (42.0-52.0); HEMOGLOBIN 14.4 g/dl (14.0-18.0); LYMPH # 1.6 10*3/uL (1.3-4.4); LYMPH % 17.1 % (27.0-41.0); MEAN CELL VOLUME 92.9 fl (80.0-94.0); MEAN CORPUSCULAR HGB 31.2 pg (27.0-31.0); MEAN CORPUSCULAR HGB CONC 33.6 g/dl (33.0-37.0); MONO # 0.6 10*3/uL (0.1-1.0); MONO % 5.8 % (3.0-9.0); NEUT # 7.2 10*3/uL (2.3-7.9); NEUT % 76.3 % (47.0-73.0); PLATELET COUNT AUTOMATED 332 10*3/uL (130-400); RED BLOOD COUNT 4.62 10*6/uL (4.50-5.90); RED CELL DISTRI WIDTH 12.3 % (0-14.5); WHITE BLOOD COUNT 9.5 10*3/uL (4.8-10.8)
[2018-01-19 17:22] LABS: ACT PARTIAL THROMBO TIME 23.2 SECONDS (20.8-31.5)
[2018-01-19 17:31] LABS: ALBUMIN 3.8 gm/dl (3.1-4.5); ALKALINE PHOSPHATASE 100 U/L (45-117); BUN 9 mg/dl (7-24); CHLORIDE 106 mmol/L (98-107); CREATININE 1.12 mg/dL (0.70-1.30); LIPASE 158 U/L (73-393); POTASSIUM 3.4 mmol/L (3.5-5.1); SGOT/AST 14 IU/L (3-35); SGPT/ALT 27 U/L (12-78); SODIUM 139 mmol/L (136-145); TOTAL PROTEIN 8.1 gm/dL (6.4-8.2)
[2018-01-19] MEDS ORDERED: CIPRO500 MG PO (18:42)
[2018-01-19] MEDS ORDERED: SEPTDS PO (18:42)
== END 2018-01-19 18:45 | disposition home or self-care (01) ==
LOC: ED 16:32
PROVIDERS: Student in an Organized Health Care Education/Training Program
DX: K50.90 Crohn's disease, unspecified, without complications (principal); K21.9 Gastro-esophageal reflux disease without esophagitis; R73.9 Hyperglycemia, unspecified; G43.909 Migraine, unspecified, not intractable, without status migrainosus; E87.6 Hypokalemia; F17.200 Nicotine dependence, unspecified, uncomplicated; Z88.8 Allergy status to other drugs, medicaments and biological substances; Z79.899 Other long term (current) drug therapy

== ENCOUNTER 2018-08-31 17:12 | Emergency (ER) | payer BC ==
[~2018-08-31] VITALS: Ht 170.1 cm; Wt 68.0 kg
[~2018-08-31 17:12] MED LIST changes: +CIPRO500 MG PO
[2018-08-31 17:47] LABS: BASO # 0.1 10*3/uL (0.0-0.1); BASO % 0.4 % (0.0-1.0); EOS # 0.1 10*3/uL (0.0-0.4); EOS % 1.1 % (1.0-4.0); HEMATOCRIT 46.8 % (42.0-52.0); HEMOGLOBIN 15.7 g/dl (14.0-18.0); LYMPH # 1.7 10*3/uL (1.3-4.4); MEAN CELL VOLUME 96.9 fl (80.0-94.0); MEAN CORPUSCULAR HGB 32.5 pg (27.0-31.0); MEAN CORPUSCULAR HGB CONC 33.5 g/dl (33.0-37.0); MEAN PLATELET VOLUME 9.1 fl (9.6-12.3); MONO # 0.7 10*3/uL (0.1-1.0); MONO % 6.3 % (3.0-9.0); NEUT # 8.8 10*3/uL (2.3-7.9); NEUT % 76.9 % (47.0-73.0); PLATELET COUNT AUTOMATED 272 10*3/uL (130-400); RED BLOOD COUNT 4.83 10*6/uL (4.50-5.90); RED CELL DISTRI WIDTH 11.8 % (0-14.5); WHITE BLOOD COUNT 11.5 10*3/uL (4.8-10.8)
[2018-08-31 18:02] LABS: ALBUMIN 3.8 gm/dl (3.1-4.5); ALKALINE PHOSPHATASE 92 U/L (45-117); BUN 9 mg/dl (7-24); CHLORIDE 104 mmol/L (98-107); CREATININE 0.96 mg/dL (0.70-1.30); POTASSIUM 4.1 mmol/L (3.5-5.1); SGOT/AST 16 IU/L (3-35); SGPT/ALT 25 U/L (12-78); SODIUM 139 mmol/L (136-145); TOTAL PROTEIN 8.2 gm/dL (6.4-8.2)
== END 2018-08-31 22:52 | disposition short-term general hospital (02) ==
LOC: ED 17:12
PROVIDERS: Emergency Medicine
DX: K61.1 Rectal abscess (principal); K21.9 Gastro-esophageal reflux disease without esophagitis; G43.909 Migraine, unspecified, not intractable, without status migrainosus; F17.200 Nicotine dependence, unspecified, uncomplicated; Z88.8 Allergy status to other drugs, medicaments and biological substances

== ENCOUNTER 2019-01-18 14:29 | Emergency (ER) | payer BC, OTHER ==
[~2019-01-18] VITALS: Ht 170.1 cm; Wt 68.5 kg
[2019-01-18 15:07] LABS: BASO # 0.1 10*3/uL (0.0-0.1); BASO % 0.7 % (0.0-1.0); EOS # 0.2 10*3/uL (0.0-0.4); EOS % 3.3 % (1.0-4.0); HEMATOCRIT 46.8 % (42.0-52.0); HEMOGLOBIN 15.4 g/dl (14.0-18.0); LYMPH # 1.8 10*3/uL (1.3-4.4); LYMPH % 25.3 % (27.0-41.0); MEAN CELL VOLUME 94.9 fl (80.0-94.0); MEAN CORPUSCULAR HGB 31.2 pg (27.0-31.0); MEAN CORPUSCULAR HGB CONC 32.9 g/dl (33.0-37.0); MEAN PLATELET VOLUME 8.7 fl (9.6-12.3); MONO # 0.5 10*3/uL (0.1-1.0); MONO % 6.9 % (3.0-9.0); NEUT # 4.4 10*3/uL (2.3-7.9); NEUT % 63.7 % (47.0-73.0); PLATELET COUNT AUTOMATED 254 10*3/uL (130-400); RED BLOOD COUNT 4.93 10*6/uL (4.50-5.90); RED CELL DISTRI WIDTH 12.1 % (0-14.5); WHITE BLOOD COUNT 6.9 10*3/uL (4.8-10.8)
[2019-01-18 15:16] LABS: BILIRUBIN NEGATIVE (NEGATIVE); BLOOD NEGATIVE (NEGATIVE); CLARITY CLEAR (CLEAR); COLOR YELLOW (YELLOW); GLUCOSE NEGATIVE (NEGATIVE); KETONE NEGATIVE (NEGATIVE); LEUKO ESTERASE NEGATIVE (NEGATIVE); NITRITE NEGATIVE (NEGATIVE); UROBILINOGEN 0.2 E.U./dl (0.2-1.0)
[2019-01-18 15:31] LABS: EPITHELIAL CELLS 0-2; WBC 0-2 wbc/hpf (0-5)
[2019-01-18 15:41] LABS: ALBUMIN 3.5 gm/dl (3.1-4.5); ALKALINE PHOSPHATASE 90 U/L (45-117); BUN 8 mg/dl (7-24); CHLORIDE 107 mmol/L (98-107); CREATININE 1.05 mg/dL (0.70-1.30); LIPASE 199 U/L (73-393); SGOT/AST 9 IU/L (3-35); SGPT/ALT 22 U/L (12-78); SODIUM 140 mmol/L (136-145); TOTAL PROTEIN 7.6 gm/dL (6.4-8.2)
[2019-01-18] MEDS ORDERED: ZOFRAN4 MG PO (17:09)
== END 2019-01-18 17:13 | disposition home or self-care (01) ==
LOC: ED 14:29
PROVIDERS: Nurse Practitioner Family
DX: R10.31 Right lower quadrant pain (principal); R10.32 Left lower quadrant pain; R10.33 Periumbilical pain; R11.0 Nausea; R68.83 Chills (without fever); G43.809 Other migraine, not intractable, without status migrainosus; F17.200 Nicotine dependence, unspecified, uncomplicated; Z88.8 Allergy status to other drugs, medicaments and biological substances; Z79.899 Other long term (current) drug therapy

== ENCOUNTER 2020-04-07 18:09 | Emergency (ER) | payer BC, OTHER ==
[~2020-04-07] VITALS: Ht 170.1 cm; Wt 71.2 kg
== END 2020-04-07 21:10 | disposition home or self-care (01) ==
LOC: ED 18:09
DX: G43.909 Migraine, unspecified, not intractable, without status migrainosus (principal); K21.9 Gastro-esophageal reflux disease without esophagitis; Z88.8 Allergy status to other drugs, medicaments and biological substances; Z79.899 Other long term (current) drug therapy

== ENCOUNTER 2020-11-25 23:46 | Emergency (ER) | payer OTHER ==
[~2020-11-25] VITALS: Ht 170.1 cm; Wt 69.9 kg
[2020-11-26 00:14] LABS: BASO # 0.1 10*3/uL (0.0-0.1); BASO % 0.7 % (0.0-1.0); EOS # 0.2 10*3/uL (0.0-0.4); EOS % 2.4 % (1.0-4.0); HEMATOCRIT 41.4 % (42.0-52.0); LYMPH # 2.1 10*3/uL (1.3-4.4); MEAN CELL VOLUME 96.7 fl (80.0-94.0); MEAN CORPUSCULAR HGB 30.4 pg (27.0-31.0); MEAN CORPUSCULAR HGB CONC 31.4 g/dl (33.0-37.0); MEAN PLATELET VOLUME 8.6 fl (9.6-12.3); MONO # 0.5 10*3/uL (0.1-1.0); MONO % 7.5 % (3.0-9.0); NEUT # 4.2 10*3/uL (2.3-7.9); NEUT % 59.1 % (47.0-73.0); PLATELET COUNT AUTOMATED 303 10*3/uL (130-400); RED BLOOD COUNT 4.28 10*6/uL (4.50-5.90); RED CELL DISTRI WIDTH 12.4 % (0-14.5)
[2020-11-26 00:42] LABS: ALBUMIN 3.2 gm/dl (3.1-4.5); ALKALINE PHOSPHATASE 82 U/L (45-117); BUN 9 mg/dl (7-24); CHLORIDE 108 mmol/L (98-107); CREATININE 0.91 mg/dL (0.70-1.30); LIPASE 126 U/L (73-393); POTASSIUM 4.2 mmol/L (3.5-5.1); SGOT/AST 10 IU/L (3-35); SGPT/ALT 20 U/L (12-78); SODIUM 142 mmol/L (136-145); TOTAL PROTEIN 6.8 gm/dL (6.4-8.2)
[2020-11-26] MEDS ORDERED: ROBAXIN-750750 MG PO (03:06)
== END 2020-11-26 03:31 | disposition home or self-care (01) ==
LOC: ED 23:46
PROVIDERS: Internal Medicine
DX: M54.5 Low back pain (principal); R10.84 Generalized abdominal pain; Z88.8 Allergy status to other drugs, medicaments and biological substances; Z87.891 Personal history of nicotine dependence

== ENCOUNTER 2021-05-30 13:11 | Inpatient (IN) | payer BC, OTHER ==
[~2021-05-30] VITALS: Ht 170.1 cm; Wt 67.0 kg
[~2021-05-30 13:11] MED LIST changes: +ROBAXIN-750750 MG PO
[2021-05-30 13:17] VITALS: BP 100/56
[2021-05-30 14:55] LABS: BASO % 0.6 % (0.0-1.0); EOS # 0.1 10*3/uL (0.0-0.4); EOS % 2.1 % (1.0-4.0); LYMPH # 1.2 10*3/uL (1.3-4.4); LYMPH % 18.3 % (27.0-41.0); MEAN CELL VOLUME 94.9 fl (80.0-94.0); MEAN CORPUSCULAR HGB 30.1 pg (27.0-31.0); MEAN CORPUSCULAR HGB CONC 31.7 g/dl (33.0-37.0); MEAN PLATELET VOLUME 8.8 fl (9.6-12.3); MONO # 0.6 10*3/uL (0.1-1.0); MONO % 8.5 % (3.0-9.0); NEUT # 4.7 10*3/uL (2.3-7.9); NEUT % 70.2 % (47.0-73.0); PLATELET COUNT AUTOMATED 303 10*3/uL (130-400); RED BLOOD COUNT 4.32 10*6/uL (4.50-5.90); RED CELL DISTRI WIDTH 12.4 % (0-14.5); WHITE BLOOD COUNT 6.7 10*3/uL (4.8-10.8)
[2021-05-30 15:10] LABS: ALBUMIN 3.3 gm/dl (3.1-4.5); ALKALINE PHOSPHATASE 93 U/L (45-117); BUN 13 mg/dl (7-24); CHLORIDE 109 mmol/L (98-107); CREATININE 0.72 mg/dL (0.70-1.30); LIPASE 105 U/L (73-393); POTASSIUM 3.9 mmol/L (3.5-5.1); SGOT/AST 12 IU/L (3-35); SGPT/ALT 16 U/L (12-78); SODIUM 139 mmol/L (136-145); TOTAL PROTEIN 7.2 gm/dL (6.4-8.2)
[2021-05-30 19:17] VITALS: BP 94/56
[2021-05-30 20:00] VITALS: BP 104/64
[2021-05-30 21:44] LABS: BILIRUBIN Negative (Negative); BLOOD Negative (Negative); CLARITY Clear (Clear); COLOR Yellow (Yellow); GLUCOSE Negative (Negative); KETONE Trace (Negative); LEUKO ESTERASE Negative (Negative); NITRITE Negative (Negative); SPECIFIC GRAVITY >= 1.030 (1.001-1.030)
[2021-05-30 21:51] LABS: EPITHELIAL CELLS 0-2; RBC 0-2 rbc/hpf (0-2); WBC 0-2 wbc/hpf (0-5)
[2021-05-30 21:52] LABS: BACTERIA TRACE
[2021-05-31] VITALS: BP 90/54
[2021-05-31 06:05] LABS: BASO # 0.1 10*3/uL (0.0-0.1); BASO % 0.9 % (0.0-1.0); EOS # 0.2 10*3/uL (0.0-0.4); EOS % 3.2 % (1.0-4.0); HEMATOCRIT 38.2 % (42.0-52.0); LYMPH # 1.5 10*3/uL (1.3-4.4); LYMPH % 24.3 % (27.0-41.0); MEAN CELL VOLUME 96.2 fl (80.0-94.0); MEAN CORPUSCULAR HGB 30.2 pg (27.0-31.0); MEAN CORPUSCULAR HGB CONC 31.4 g/dl (33.0-37.0); MONO # 0.6 10*3/uL (0.1-1.0); MONO % 9.1 % (3.0-9.0); NEUT % 62.3 % (47.0-73.0); PLATELET COUNT AUTOMATED 280 10*3/uL (130-400); RED BLOOD COUNT 3.97 10*6/uL (4.50-5.90); RED CELL DISTRI WIDTH 12.4 % (0-14.5); WHITE BLOOD COUNT 6.3 10*3/uL (4.8-10.8)
[2021-05-31 06:29] LABS: ALBUMIN 2.7 gm/dl (3.1-4.5); BUN 9 mg/dl (7-24); CHLORIDE 112 mmol/L (98-107); CHOLESTEROL 122 mg/dL (<200); CREATININE 0.62 mg/dL (0.70-1.30); POTASSIUM 3.7 mmol/L (3.5-5.1); SGOT/AST 12 IU/L (3-35); SGPT/ALT 13 U/L (12-78); SODIUM 139 mmol/L (136-145); TOTAL PROTEIN 6.2 gm/dL (6.4-8.2); TRIGLYCERIDES 84 mg/dl (<150)
[2021-05-31 06:30] LABS: ACT PARTIAL THROMBO TIME 29.1 SECONDS (20.0-32.1)
[2021-05-31 06:35] LABS: ALKALINE PHOSPHATASE 82 U/L (45-117); LDL CHOLESTEROL 69 mg/dL (9-159); THYROID STIM HORMONE (HS) 0.047 uIU/ml (0.358-4.75)
[2021-05-31 08:00] VITALS: BP 98/50
[2021-05-31 08:04] LABS: VITAMIN D, 25-HYDROXY 34.1 ng/mL (30-100)
[2021-05-31 12:00] VITALS: BP 92/56
[2021-05-31 16:00] VITALS: BP 105/56
[2021-05-31 20:00] VITALS: BP 108/69
[2021-06-01] VITALS: BP 118/55
[2021-06-01 06:09] LABS: BUN 9 mg/dl (7-24); CHLORIDE 108 mmol/L (98-107); CREATININE 0.65 mg/dL (0.70-1.30); SODIUM 138 mmol/L (136-145)
[2021-06-01 06:37] LABS: HEMATOCRIT 39.6 % (42.0-52.0); MEAN CELL VOLUME 94.3 fl (80.0-94.0); MEAN CORPUSCULAR HGB 30.5 pg (27.0-31.0); MEAN CORPUSCULAR HGB CONC 32.3 g/dl (33.0-37.0); MEAN PLATELET VOLUME 9.4 fl (9.6-12.3); PLATELET COUNT AUTOMATED 342 10*3/uL (130-400); WHITE BLOOD COUNT 15.4 10*3/uL (4.8-10.8)
[2021-06-01 08:00] VITALS: BP 118/59
[2021-06-01 08:14] LABS: PLATELET SUFFICIENCY NORMAL (NORMAL); TOTAL CELLS COUNTED 100 #CELLS
[2021-06-01 12:00] VITALS: BP 122/70
[2021-06-01 16:00] VITALS: BP 136/73
[2021-06-01 20:00] VITALS: BP 133/84
[2021-06-02] VITALS: BP 133/71
[2021-06-02 08:00] VITALS: BP 122/71
[2021-06-02 12:00] VITALS: BP 137/71
[2021-06-02] MEDS ORDERED: DELZICOL400 M2 PO (12:16)
[2021-06-02] MEDS ORDERED: PREDNISONE10 MG PO (12:16)
[2021-06-02] MEDS ORDERED: CIPRO500 MG PO (12:18)
[2021-06-02] MEDS ORDERED: FLAGYL500 MG PO (12:18)
== END 2021-06-02 14:36 | disposition home or self-care (01) | DRG 385 ==
LOC: ED 13:11 → EDHOLD 18:07 → 4E 18:07
PROVIDERS: Internal Medicine; Physician Assistant; Student in an Organized Health Care Education/Training Program; ADMIT Student in an Organized Health Care Education/Training Program; ATTEND Student in an Organized Health Care Education/Training Program
DX: K50.919 Crohn's disease, unspecified, with unspecified complications (principal); E43 Unspecified severe protein-calorie malnutrition; K52.9 Noninfective gastroenteritis and colitis, unspecified; E83.51 Hypocalcemia; K21.9 Gastro-esophageal reflux disease without esophagitis; E87.8 Other disorders of electrolyte and fluid balance, not elsewhere classified; K44.9 Diaphragmatic hernia without obstruction or gangrene; E53.8 Deficiency of other specified B group vitamins; D53.9 Nutritional anemia, unspecified; Z88.8 Allergy status to other drugs, medicaments and biological substances; Z68.23 Body mass index [BMI] 23.0-23.9, adult

== ENCOUNTER 2021-06-05 19:36 | Emergency (ER) | payer BC, OTHER ==
[~2021-06-05] VITALS: Ht 170.1 cm; Wt 66.2 kg
[~2021-06-05 19:36] MED LIST changes: +DELZICOL400 M2 PO; +FLAGYL500 MG PO
[2021-06-05 23:36] LABS: HEMATOCRIT 40.9 % (42.0-52.0); MEAN CELL VOLUME 93.6 fl (80.0-94.0); MEAN CORPUSCULAR HGB 30.4 pg (27.0-31.0); MEAN CORPUSCULAR HGB CONC 32.5 g/dl (33.0-37.0); MEAN PLATELET VOLUME 8.9 fl (9.6-12.3); PLATELET COUNT AUTOMATED 395 10*3/uL (130-400); RED BLOOD COUNT 4.37 10*6/uL (4.50-5.90); RED CELL DISTRI WIDTH 12.9 % (0-14.5); WHITE BLOOD COUNT 13.9 10*3/uL (4.8-10.8)
[2021-06-05 23:55] LABS: ALBUMIN 3.4 gm/dl (3.1-4.5); ALKALINE PHOSPHATASE 79 U/L (45-117); BUN 17 mg/dl (7-24); CHLORIDE 106 mmol/L (98-107); CREATININE 0.79 mg/dL (0.70-1.30); LIPASE 117 U/L (73-393); SGOT/AST 9 IU/L (3-35); SGPT/ALT 42 U/L (12-78); SODIUM 139 mmol/L (136-145); TOTAL PROTEIN 6.9 gm/dL (6.4-8.2)
[2021-06-06 00:08] LABS: PLATELET SUFFICIENCY NORMAL (NORMAL); TOTAL CELLS COUNTED 100 #CELLS
[2021-06-06 00:40] LABS: BILIRUBIN Negative (Negative); BLOOD Negative (Negative); CLARITY Clear (Clear); COLOR Yellow (Yellow); GLUCOSE Negative (Negative); KETONE Trace (Negative); LEUKO ESTERASE Trace (Negative); NITRITE Negative (Negative); PH 6.5 (4.5-8.0); SPECIFIC GRAVITY 1.025 (1.001-1.030); UROBILINOGEN 0.2 E.U./dl (0.0-1.0)
[2021-06-06 01:04] LABS: BACTERIA TRACE; EPITHELIAL CELLS 0-2; RBC 0-2 rbc/hpf (0-2); WBC 0-2 wbc/hpf (0-5)
== END 2021-06-06 17:15 | disposition short-term general hospital (02) ==
LOC: ED 19:36
PROVIDERS: Emergency Medicine
DX: K61.1 Rectal abscess (principal); F17.200 Nicotine dependence, unspecified, uncomplicated; Z88.8 Allergy status to other drugs, medicaments and biological substances; Z79.899 Other long term (current) drug therapy; Z79.2 Long term (current) use of antibiotics; Z98.890 Other specified postprocedural states

== ENCOUNTER 2021-06-12 02:57 | Emergency (ER) | payer BC, OTHER ==
[~2021-06-12] VITALS: Ht 170.1 cm; Wt 66.2 kg
[2021-06-12 04:06] LABS: BASO % 0.2 % (0.0-1.0); EOS # 0.2 10*3/uL (0.0-0.4); EOS % 1.2 % (1.0-4.0); HEMATOCRIT 43.4 % (42.0-52.0); LYMPH # 2.4 10*3/uL (1.3-4.4); LYMPH % 18.9 % (27.0-41.0); MEAN CELL VOLUME 95.6 fl (80.0-94.0); MEAN CORPUSCULAR HGB 30.6 pg (27.0-31.0); MEAN PLATELET VOLUME 8.6 fl (9.6-12.3); MONO # 1.1 10*3/uL (0.1-1.0); MONO % 8.4 % (3.0-9.0); NEUT # 9.1 10*3/uL (2.3-7.9); NEUT % 70.2 % (47.0-73.0); PLATELET COUNT AUTOMATED 337 10*3/uL (130-400); RED BLOOD COUNT 4.54 10*6/uL (4.50-5.90); RED CELL DISTRI WIDTH 13.3 % (0-14.5); WHITE BLOOD COUNT 12.9 10*3/uL (4.8-10.8)
[2021-06-12 04:20] LABS: ALBUMIN 3.3 gm/dl (3.1-4.5); ALKALINE PHOSPHATASE 84 U/L (45-117); BUN 11 mg/dl (7-24); CHLORIDE 108 mmol/L (98-107); CREATININE 0.81 mg/dL (0.70-1.30); POTASSIUM 3.5 mmol/L (3.5-5.1); SGOT/AST 33 IU/L (3-35); SGPT/ALT 47 U/L (12-78); SODIUM 141 mmol/L (136-145); TOTAL PROTEIN 6.9 gm/dL (6.4-8.2)
[2021-06-12 06:39] LABS: BILIRUBIN Negative (Negative); BLOOD Negative (Negative); CLARITY Clear (Clear); COLOR Yellow (Yellow); GLUCOSE Negative (Negative); KETONE Trace (Negative); LEUKO ESTERASE Trace (Negative); NITRITE Negative (Negative); SPECIFIC GRAVITY 1.025 (1.001-1.030)
[2021-06-12 06:57] LABS: WBC 0-2 wbc/hpf (0-5)
[2021-06-12 06:58] LABS: BACTERIA 1+; CALCIUM OXALATE CRYSTALS 2+; MUCOUS TRACE
== END 2021-06-12 07:35 | disposition home or self-care (01) ==
LOC: ED 02:57
PROVIDERS: Emergency Medicine
DX: K50.90 Crohn's disease, unspecified, without complications (principal); K21.9 Gastro-esophageal reflux disease without esophagitis; G43.909 Migraine, unspecified, not intractable, without status migrainosus; F17.200 Nicotine dependence, unspecified, uncomplicated; Z88.8 Allergy status to other drugs, medicaments and biological substances

== ENCOUNTER 2021-09-28 23:45 | Emergency (ER) | payer BC, OTHER ==
[~2021-09-28] VITALS: Ht 170.1 cm; Wt 70.3 kg
[2021-09-29 01:38] LABS: BASO % 0.4 % (0.0-1.0); EOS # 0.2 10*3/uL (0.0-0.4); EOS % 1.6 % (1.0-4.0); HEMATOCRIT 38.4 % (42.0-52.0); LYMPH # 1.3 10*3/uL (1.3-4.4); LYMPH % 13.8 % (27.0-41.0); MEAN CELL VOLUME 95.3 fl (80.0-94.0); MEAN CORPUSCULAR HGB 30.8 pg (27.0-31.0); MEAN CORPUSCULAR HGB CONC 32.3 g/dl (33.0-37.0); MEAN PLATELET VOLUME 8.3 fl (9.6-12.3); MONO # 0.8 10*3/uL (0.1-1.0); MONO % 7.8 % (3.0-9.0); NEUT # 7.3 10*3/uL (2.3-7.9); NEUT % 76.2 % (47.0-73.0); PLATELET COUNT AUTOMATED 336 10*3/uL (130-400); RED BLOOD COUNT 4.03 10*6/uL (4.50-5.90); RED CELL DISTRI WIDTH 12.6 % (0-14.5); WHITE BLOOD COUNT 9.6 10*3/uL (4.8-10.8)
[2021-09-29 01:57] LABS: ALBUMIN 2.9 gm/dl (3.1-4.5); ALKALINE PHOSPHATASE 94 U/L (45-117); BUN 19 mg/dl (7-24); CHLORIDE 110 mmol/L (98-107); CREATININE 1.03 mg/dL (0.70-1.30); SGOT/AST 18 IU/L (3-35); SGPT/ALT 25 U/L (12-78); SODIUM 141 mmol/L (136-145)
[2021-09-29] MEDS ORDERED: AUGMENTIN 875875 MG PO (06:25)
== END 2021-09-29 06:38 | disposition left against medical advice (07) ==
LOC: ED 23:45
PROVIDERS: Emergency Medicine
DX: K61.0 Anal abscess (principal); G43.909 Migraine, unspecified, not intractable, without status migrainosus; K21.9 Gastro-esophageal reflux disease without esophagitis; F17.200 Nicotine dependence, unspecified, uncomplicated; Z88.8 Allergy status to other drugs, medicaments and biological substances

== ENCOUNTER 2022-03-25 22:49 | Emergency (ER) | payer BC, OTHER ==
[~2022-03-25] VITALS: Ht 170.1 cm; Wt 68.0 kg
[2022-03-25 23:44] LABS: BASO # 0.1 10*3/uL (0.0-0.1); BASO % 0.5 % (0.0-1.0); EOS # 0.2 10*3/uL (0.0-0.4); EOS % 1.6 % (1.0-4.0); HEMATOCRIT 41.6 % (42.0-52.0); LYMPH # 1.5 10*3/uL (1.3-4.4); LYMPH % 15.3 % (27.0-41.0); MEAN CELL VOLUME 92.2 fl (80.0-94.0); MEAN CORPUSCULAR HGB 30.6 pg (27.0-31.0); MEAN CORPUSCULAR HGB CONC 33.2 g/dl (33.0-37.0); MEAN PLATELET VOLUME 8.5 fl (9.6-12.3); MONO # 0.8 10*3/uL (0.1-1.0); MONO % 8.1 % (3.0-9.0); NEUT # 7.2 10*3/uL (2.3-7.9); NEUT % 74.3 % (47.0-73.0); PLATELET COUNT AUTOMATED 299 10*3/uL (130-400); RED BLOOD COUNT 4.51 10*6/uL (4.50-5.90); RED CELL DISTRI WIDTH 12.5 % (0-14.5); WHITE BLOOD COUNT 9.7 10*3/uL (4.8-10.8)
[2022-03-26 00:03] LABS: ALKALINE PHOSPHATASE 94 U/L (45-117); BUN 12 mg/dl (7-24); CHLORIDE 105 mmol/L (98-107); CREATININE 1.01 mg/dL (0.70-1.30); POTASSIUM 3.2 mmol/L (3.5-5.1); SGOT/AST 15 IU/L (3-35); SGPT/ALT 21 U/L (12-78); SODIUM 139 mmol/L (136-145); TOTAL PROTEIN 6.7 gm/dL (6.4-8.2)
== END 2022-03-26 01:47 | disposition home or self-care (01) ==
LOC: ED 22:49
PROVIDERS: Internal Medicine
DX: E86.0 Dehydration (principal); R19.7 Diarrhea, unspecified; Z88.8 Allergy status to other drugs, medicaments and biological substances; F17.200 Nicotine dependence, unspecified, uncomplicated

== ENCOUNTER 2022-04-17 01:49 | Emergency (ER) | payer BC, OTHER ==
[2022-04-17 02:51] LABS: BASO # 0.1 10*3/uL (0.0-0.1); BASO % 0.7 % (0.0-1.0); EOS # 0.2 10*3/uL (0.0-0.4); HEMATOCRIT 43.6 % (42.0-52.0); LYMPH # 1.6 10*3/uL (1.3-4.4); LYMPH % 20.5 % (27.0-41.0); MEAN CELL VOLUME 92.8 fl (80.0-94.0); MEAN CORPUSCULAR HGB 30.9 pg (27.0-31.0); MEAN CORPUSCULAR HGB CONC 33.3 g/dl (33.0-37.0); MONO # 0.7 10*3/uL (0.1-1.0); MONO % 9.2 % (3.0-9.0); NEUT # 5.1 10*3/uL (2.3-7.9); NEUT % 66.5 % (47.0-73.0); PLATELET COUNT AUTOMATED 323 10*3/uL (130-400); RED CELL DISTRI WIDTH 12.5 % (0-14.5); WHITE BLOOD COUNT 7.6 10*3/uL (4.8-10.8)
[2022-04-17 03:07] LABS: ALKALINE PHOSPHATASE 99 U/L (45-117); BUN 7 mg/dl (7-24); CHLORIDE 106 mmol/L (98-107); CREATININE 1.03 mg/dL (0.70-1.30); LIPASE 160 U/L (73-393); POTASSIUM 3.3 mmol/L (3.5-5.1); SGOT/AST 10 IU/L (3-35); SGPT/ALT 16 U/L (12-78); SODIUM 140 mmol/L (136-145); TOTAL PROTEIN 6.9 gm/dL (6.4-8.2)
[2022-04-17] MEDS ORDERED: METRONIDAZOLE500 M1 PO (10:19)
[2022-04-17] MEDS ORDERED: AUGMENTIN 875-875 MG PO (10:19)
== END 2022-04-17 10:25 | disposition home or self-care (01) ==
LOC: ED 01:49
PROVIDERS: Internal Medicine
DX: K50.10 Crohn's disease of large intestine without complications (principal)

== ENCOUNTER 2023-01-22 18:53 | Emergency (ER) | payer OTHER ==
[~2023-01-22] VITALS: Ht 170.1 cm; Wt 68.0 kg
[~2023-01-22 18:53] MED LIST changes: +AUGMENTIN 875-875 MG PO; +METRONIDAZOLE500 M1 PO
[2023-01-22 19:58] LABS: BASO # 0.1 10*3/uL (0.0-0.1); BASO % 0.5 % (0.0-1.0); EOS # 0.1 10*3/uL (0.0-0.4); EOS % 0.5 % (1.0-4.0); HEMATOCRIT 44.8 % (42.0-52.0); LYMPH # 1.7 10*3/uL (1.3-4.4); LYMPH % 18.5 % (27.0-41.0); MEAN CELL VOLUME 92.8 fl (80.0-94.0); MEAN CORPUSCULAR HGB 30.4 pg (27.0-31.0); MEAN CORPUSCULAR HGB CONC 32.8 g/dl (33.0-37.0); MEAN PLATELET VOLUME 8.6 fl (9.6-12.3); MONO # 0.6 10*3/uL (0.1-1.0); MONO % 6.4 % (3.0-9.0); NEUT % 73.8 % (47.0-73.0); PLATELET COUNT AUTOMATED 309 10*3/uL (130-400); RED BLOOD COUNT 4.83 10*6/uL (4.50-5.90); WHITE BLOOD COUNT 9.4 10*3/uL (4.8-10.8)
[2023-01-22 20:13] LABS: ALKALINE PHOSPHATASE 97 U/L (46-116); BUN 7 mg/dl (9-23); CHLORIDE 103 mmol/L (98-107); POTASSIUM 3.7 mmol/L (3.4-5.1); SGPT/ALT 15 U/L (10-49); TOTAL PROTEIN 7.6 gm/dL (6.0-8.0)
[2023-01-22] MEDS ORDERED: AMOX-CLAV 875-1 EACH PO (21:41)
[2023-01-22] MEDS ORDERED: HYDROCODONE-AC1 EAC1 PO (21:41)
== END 2023-01-22 21:57 | disposition home or self-care (01) ==
LOC: ED 18:53
PROVIDERS: Internal Medicine
DX: K61.1 Rectal abscess (principal); K21.9 Gastro-esophageal reflux disease without esophagitis; Z88.8 Allergy status to other drugs, medicaments and biological substances; Z98.890 Other specified postprocedural states; F17.200 Nicotine dependence, unspecified, uncomplicated

== ENCOUNTER 2023-05-07 05:01 | Emergency (ER) | payer OTHER ==
[~2023-05-07] VITALS: Ht 170.1 cm; Wt 68.0 kg
[~2023-05-07 05:01] MED LIST changes: +AMOX-CLAV 875-1 EACH PO; +HYDROCODONE-AC1 EAC1 PO
[2023-05-07 05:55] LABS: ALKALINE PHOSPHATASE 101 U/L (46-116); BUN 8 mg/dl (9-23); CHLORIDE 102 mmol/L (98-107); LIPASE 57 U/L (12-53); POTASSIUM 3.8 mmol/L (3.4-5.1); SGPT/ALT 30 U/L (10-49); TOTAL PROTEIN 7.8 gm/dL (6.0-8.0)
[2023-05-07 06:02] LABS: BASO # 0.1 10*3/uL (0.0-0.1); BASO % 0.6 % (0.0-1.0); EOS # 0.1 10*3/uL (0.0-0.4); EOS % 1.4 % (1.0-4.0); HEMATOCRIT 46.4 % (42.0-52.0); LYMPH # 1.5 10*3/uL (1.3-4.4); LYMPH % 15.6 % (27.0-41.0); MEAN CELL VOLUME 93.2 fl (80.0-94.0); MEAN CORPUSCULAR HGB 30.9 pg (27.0-31.0); MEAN CORPUSCULAR HGB CONC 33.2 g/dl (33.0-37.0); MEAN PLATELET VOLUME 8.6 fl (9.6-12.3); MONO # 0.7 10*3/uL (0.1-1.0); MONO % 7.7 % (3.0-9.0); NEUT # 7.2 10*3/uL (2.3-7.9); NEUT % 74.3 % (47.0-73.0); PLATELET COUNT AUTOMATED 365 10*3/uL (130-400); RED BLOOD COUNT 4.98 10*6/uL (4.50-5.90); RED CELL DISTRI WIDTH 12.5 % (0-14.5); WHITE BLOOD COUNT 9.7 10*3/uL (4.8-10.8)
== END 2023-05-07 07:30 | disposition home or self-care (01) ==
LOC: ED 05:01
PROVIDERS: Internal Medicine
DX: K50.114 Crohn's disease of large intestine with abscess (principal); R10.9 Unspecified abdominal pain; K21.9 Gastro-esophageal reflux disease without esophagitis; Z88.8 Allergy status to other drugs, medicaments and biological substances; Z98.890 Other specified postprocedural states; F17.200 Nicotine dependence, unspecified, uncomplicated